=== PATIENT | male | born 1965 | race Caucasian/White ===

== ENCOUNTER → 2016-11-13 | Outpatient (CLI) | payer BC ==
[~2016-11-13] MED LIST: OMEP40CA PO; XRL15 PO
--- NOTE | 2016-11-13 11:20 | DIAGNOSTIC IMAGING REPORT ---
CT SCAN OF THE PARANASAL SINUSES CLINICAL HISTORY: Sinusitis. COMPARISON STUDY: No priors. TECHNIQUE: High-resolution CT scan of the paranasal sinuses is performed. Images are reviewed in the axial, sagittal, and coronal planes. IV contrast was not administered for this examination. The examination is performed using the fusion protocol. CT DOSE: 590.66 mGy.cm FINDINGS: Maxillary antra: There is trace dependent mucosal thickening seen in the left maxillary antrum. The right maxillary antrum is clear. Anterior ethmoid sinuses: Clear. Posterior ethmoid sinuses: Clear. Sphenoid sinuses: Clear. Frontal sinuses: Trace mucosal thickening is seen bilaterally. Ostiomeatal complexes: Patent bilaterally. Frontoethmoidal and sphenoethmoidal recesses: Patent bilaterally. Carotid arteries: The carotid arteries are covered and without septal attachments. Ethmoid roofs: There is slightly asymmetric elevation of the left ethmoid roof as compared to the right. Nasal turbinates: Normal in appearance. Nasal septum: There is minimal rightward deviation of the bony nasal septum. Optic nerves: Covered. Orbits: The bony orbits are intact. Orbital contents are normal in appearance. Calvarium: The imaged calvarium is normal in appearance Mastoid air cells: Well pneumatized. Brain parenchyma: Partially visualized brain parenchyma is within normal limits. IMPRESSION: No significant paranasal sinus disease. See above. Electronically signed by: Burke Heredia M.D. 11/13/2016 11:18 AM Dictated Date/Time: 11/13/2016 11:15 AM
== END | disposition home or self-care (01) ==
LOC: C.CTS 10:21
PROVIDERS: ATTEND Physician Assistant
DX: K21.9 Gastro-esophageal reflux disease without esophagitis (principal)

== ENCOUNTER → 2017-11-25 | Outpatient (CLI) | payer OTHER | END | disposition home or self-care (01) | LOC: C.LAB 16:34 | PROVIDERS: ATTEND Family Medicine | DX: M79.669 Pain in unspecified lower leg (principal); D68.59 Other primary thrombophilia ==

== ENCOUNTER → 2017-11-25 | Outpatient (CLI) | payer OTHER ==
--- NOTE | 2017-11-25 17:36 | DIAGNOSTIC IMAGING REPORT ---
ULTRASOUND R VENOUS DOPP LOWER EXT UNILAT CLINICAL HISTORY: RIGHT LEG PAIN AND SWELLING COMPARISON STUDY: March 01, 2016 FINDINGS: Real-time and color flow Doppler imaging were performed. Flow was seen within the femoral, popliteal and calf veins with no intraluminal thrombus demonstrated. The saphenous vein is patent. IMPRESSION: No evidence of right lower extremity DVT Electronically signed by: Mason Ulrich M.D. 11/25/2017 5:35 PM Dictated Date/Time: 11/25/2017 5:35 PM
== END | disposition home or self-care (01) ==
LOC: C.ULTR 17:02
PROVIDERS: ATTEND Family Medicine
DX: M79.669 Pain in unspecified lower leg (principal); D68.59 Other primary thrombophilia